=== PATIENT | male | born 1980 ===

== ENCOUNTER 2019-07-30 08:23 | Emergency (ER) | payer SELFPAY ==
[2019-07-30 08:29] VITALS: BMI 29.5
--- NOTE | 2019-07-30 08:29 | ED_ITS ---
HPI - Extremity Injury (Upper) General: Chief Complaint: Extremity Injury, Lower Stated Complaint: Left leg pain Time Seen by Provider: 07/30/19 08:38 History of Present Illness: HPI narrative: 39-year-old male comes in after a fall at home he was walking out to his car he hurt his left knee was unable to walk he denies any other injuries when he fell down.Mild He has no previous injuries to that leg. There is not strike his head there is no loss of consciousness he is awake alert oriented x3 MD complaint: injury to: left (Knee) Review of Systems Const: Denies: fever, chills, body aches, change in appetite, fatigue or malaise ENMT: Denies: throat pain, ear pain, nasal discharge or nasal congestion Card: Denies: chest pain, edema, shortness of breath on exertion or shortness of breath when lying down Resp: Denies: shortness of breath, productive cough or non-productive cough GI: Denies: abdominal pain, nausea, vomiting, vomiting blood, coffee grounds in vomit, diarrhea, constipation, bloating, blood in stool or black tarry stool : Denies: flank pain, painful urination, urinary frequency or urinary urgency Skin/Breast: Denies: rash or itching PFSH ED PFSH: Statuses (acute, chronic, etc) shown below reflect problem list status as previously entered and may not be historically accurate Social History Smoking and tobacco status: never smoked Housing: House 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 Physical Exam Const: COMMON NORMALS: no apparent distress GENERAL APPEARANCE: cooperative and comfortable ORIENTATION/CONSCIOUSNESS: Yes awake, Yes oriented to person, Yes oriented to place and Yes oriented to time HENMT: COMMON NORMALS: normocephalic, head/scalp atraumatic, hearing grossly normal bilaterally, external ears normal, EAC's normal, TM's normal bilaterally, nasal mucous membranes and turbinates normal, moist oral mucous membranes and oropharynx normal HEAD & SCALP: normocephalic and atraumatic NOSE: nasal mucous membranes and turbinates normal EXTERNAL EAR: Yes external ears normal EXTERNAL AUDITORY CANAL: EAC's normal TYMPANIC MEMBRANE: TM's normal bilaterally Eye: COMMON NORMALS: PERRL, EOMs intact bilaterally, conjunctivae normal and no scleral icterus CONJUNCTIVA: Yes conjunctivae normal PUPIL: Yes PERRL Neck/C-Spine: COMMON NORMALS: full ROM, no lymphadenopathy, supple and no JVD Lymph: LYMPHATIC: no lymphadenopathy noted and no lymphedema noted Resp: COMMON NORMALS: normal respiratory effort, no retractions, no use of accessory muscles and clear to auscultation bilaterally AUSCULTATION: clear to auscultation bilaterally Cardio: COMMON NORMALS: no JVD, regular rate, regular rhythm and no murmurs RATE: regular rate RHYTHM: regular rhythm GI: COMMON NORMALS: soft to palpation and no hepatosplenomegaly AUSCULTATION: Yes normoactive bowel sounds PALPATION: Yes soft, No tender, No guarding and Yes no hepatosplenomegaly Extremity: COMMON NORMALS: normal to inspection, normal capillary refill, no clubbing, cyanosis or edema, no calf tenderness and no pedal edema LEFT LOWER EXTREMITY: Yes knee joint (Dorsalis pedis and posterior tibialis pulses are normal sensation is normal to the left foot there is obvious deformity of the right knee with anterior lateral displacement of the tibia on gross appearance. Moderate swelling no laceration no active bleeding) Neuro: SENSORIUM/ORIENTATION: Yes oriented to person, Yes oriented to place and Yes oriented to time Skin: COMMON NORMALS: no rashes or lesions noted GENERAL SKIN EXAM: no rashes or lesions noted Course ED course: Reviewed findings with Dr. Curiel. He came to see the patient in the ER. We did put a posterior splint on will make him nonweightbearing on crutches and given pain medications Ortho will make arrangements for him next week to have outpatient surgery for open reduction internal fixation of the fracture. Vital Signs: Vital signs: Vital Signs Temperature 98.1 F 07/30/19 08:34 Pulse Rate 88 07/30/19 11:47 Respiratory Rate 17 07/30/19 11:47 Blood Pressure 162/103 07/30/19 11:47 Pulse Oximetry 97 07/30/19 11:47 MDM - Extremity Injury (Upper) Lab Data: Labs: Lab Results 07/30/19 07/30/19 07/30/19 Range/Units 08:52 08:52 08:52 WBC 5.4 (4.0-10.0) 10^3/ uL RBC 5.05 (4.1-5.3) 10^6/u L Hgb 14.3 (11.7-16.6) g/dL Hct 42.5 (42.0-52.0) % MCV 84.2 (80-94) fL MCH 28.3 (28.0-34.0) pg MCHC 33.6 (30.0-36.0) g/dL RDW 11.9 L (12.1-15.1) % Plt Count 237 (130-400) 10^3/c mm MPV 10.3 (7.4-10.4) fL Neut % (Auto) 68.9 % Lymph % (Auto) 22.2 % [place] % (Auto) 6.4 % Eos % (Auto) 1.9 % Baso % (Auto) 0.2 % Neut # (Auto) 3.7 (1.8-7.7) 10^3/u L Lymph # (Auto) 1.2 (0.8-4.8) 10^3/u L [place] # (Auto) 0.3 (0.2-0.9) 10^3/u L Eos # (Auto) 0.1 (0.0-0.8) 10^3/u L Baso # (Auto) 0.0 (0.0-0.1) 10^3/u L Nucleated RBC % (a uto) 0 % Nucleated RBCs # 0.0 /100WBC PT 13.30 (10.5-13.3) SECO NDS INR 0.98 (0.8-1.2) APTT 29.3 (23.9-36.7) SECO NDS Sodium 133 L (136-145) mmol/L Potassium 4.5 (3.5-5.1) mmol/L Chloride 97 L (98-107) mmol/L Carbon Dioxide 24 (22-29) mmol/L Anion Gap 16.5 (5-19) BUN 12 (6-20) mg/dL Creatinine 0.6 L (0.7-1.2) mg/dL GFR Calculation 150.8 H (90-130) mL/min Glucose 201 H (74-109) mg/dL Calcium 9.8 (8.6-10.0) mg/Dl Total Bilirubin 0.4 (0.15-1.2) mg/dL AST 25 (0-40) U/L ALT 42 H (0-41) U/L Alkaline Phosphata se 127 (40-130) IU/L Total Protein 7.9 (6.6-8.7) g/dL Albumin 4.8 (3.5-5.2) g/dL Globulin 3.1 (1.3-4.6) g/dL Discharge Plan Discharge Patient Disposition: Home, Self-Care w Plan Readm Clinical Impression: Fracture tibia/fibula Condition: Stable Prescriptions: [place] 5-325 mg tablet 1 tab PO Q6H PRN (Reason: pain) Qty: 20 RF: 0 Zofran 4 mg tablet 4 mg PO Q6H PRN (Reason: nausea and vomiting) Qty: 14 RF: 0 No Action Tylenol 325 mg Tablet 325 mg PO PRN RF: 0 metformin 1,000 mg tablet 1,000 mg PO BID RF: 0 lisinopril 10 mg tablet 10 mg PO DAILY RF: 0 Referrals: Duarte Curiel MD [Physician] - 1-3 days Discharge Date/Time: 07/30/19 11:48 Coding Level of Care Code ED Channel Machine Operator for Chg Fwd Exam Problem Focused
[2019-07-30 08:34] VITALS: BP 160/112; PULSE 117; RESP 18; TEMP 36.7; O2SAT 97
--- NOTE | 2019-07-30 08:35 | XRR_ITS ---
PROCEDURE INFORMATION: Exam: XR Left Knee Exam date and time: 07/30/2019 9:22 AM Age: 39 years old Clinical indication: Injury or trauma; Fall; Initial encounter; Blunt trauma; Lower leg; Left; Additional info: Fall pain, obvious deformity of the lower aspect of the knee TECHNIQUE: Imaging protocol: XR Left knee. Views: 3 views. COMPARISON: CR XR tibia fibula LT 2V [id number] 07/30/2019 8:40 AM FINDINGS: Bones/joints: 3 mm curvilinear metallic density overlying the medial femoral condyle. Acute comminuted fracture of the proximal left fibular diaphysis with mild anterior displacement of major distal fracture fragment. Soft tissues: Mild soft tissue swelling. XR/XR knee LT 3V* [id number] IMPRESSION: 1. 3 mm curvilinear metallic density overlying the medial femoral condyle. 2. Acute comminuted fracture of the proximal left fibular diaphysis with mild anterior displacement of major distal fracture fragment.
--- NOTE | 2019-07-30 08:35 | XRR_ITS ---
PROCEDURE INFORMATION: Exam: XR Left Tibia and Fibula Exam date and time: 07/30/2019 9:22 AM Age: 39 years old Clinical indication: Injury or trauma; Fall; Initial encounter; Fracture, traumatic; Closed fracture; Tibia and ankle; Left; Not specified; Lower end of tibia; Additional info: Fall pain TECHNIQUE: Imaging protocol: XR Left tibia and fibula. Views: 2 views. COMPARISON: No relevant prior studies available. FINDINGS: Bones/joints: Acute comminuted distal left tibial diaphyseal fracture with posterior displacement of major distal fracture fragment. Acute comminuted fracture of the proximal left fibular diaphysis with mild anterior displacement of the major distal fracture fragment. Soft tissues: Mild soft tissue swelling. 3 mm curvilinear metallic density overlying the medial femoral condyle. XR/XR tibia fibula LT 2V [id number] IMPRESSION: 1. Acute comminuted distal left tibial diaphyseal fracture with posterior displacement of major distal fracture fragment. 2. Acute comminuted fracture of the proximal left fibular diaphysis with mild anterior displacement of the major distal fracture fragment.
[2019-07-30] MEDS: ondansetron 2 mg/ML SDV 2 mL 4 MG IVP (08:53)
[2019-07-30] MEDS: morphine 4 mg/mL SDV 1 mL IVP ×2 (08:53→10:43)
[2019-07-30] MEDS: sodium chloride 0.9% 500 ML IV (08:53)
--- NOTE | 2019-07-30 08:56 | XRR_ITS ---
PROCEDURE INFORMATION: Exam: XR Left Ankle Exam date and time: 07/30/2019 9:20 AM Age: 39 years old Clinical indication: Injury or trauma; Fall; Initial encounter; Fracture, traumatic; Nondisplaced; Ankle; Left; Not specified TECHNIQUE: Imaging protocol: XR Left ankle. Views: 3 or more views. COMPARISON: No relevant prior studies available. FINDINGS: Bones/joints: Acute comminuted fracture of the distal left tibial diaphysis with mild lateral and posterior displacement of major distal fracture fragment. Soft tissues: Mild soft tissue swelling. XR/XR ankle LT min 3V* [id number] IMPRESSION: Acute comminuted fracture of the distal left tibial diaphysis with mild lateral and posterior displacement of major distal fracture fragment.
[2019-07-30 09:20] LABS: INR 0.98 (0.8-1.2)
[2019-07-30 09:21] LABS: Partial Thromboplastin Time 29.3 SECONDS (23.9-36.7)
[2019-07-30 09:27] LABS: Alanine Aminotransferase 42 U/L (0-41); Albumin Level 4.8 g/dL (3.5-5.2); Alkaline Phosphatase 127 IU/L (40-130); Anion Gap 16.5 (5-19); Aspartate Amino Transferase 25 U/L (0-40); Blood Urea Nitrogen 12 mg/dL (6-20); Calcium 9.8 mg/Dl (8.6-10.0); Carbon Dioxide 24 mmol/L (22-29); Chloride 97 mmol/L (98-107); Globulin 3.1 g/dL (1.3-4.6); Glomerular Filtration Rate 150.8 mL/min (90-130); Glucose 201 mg/dL (74-109); Potassium 4.5 mmol/L (3.5-5.1); Sodium 133 mmol/L (136-145); Total Bilirubin 0.4 mg/dL (0.15-1.2); Total Protein 7.9 g/dL (6.6-8.7)
[2019-07-30 09:42] LABS: Basophils % 0.2 %; Eosinophils # 0.1 10^3/uL (0.0-0.8); Eosinophils % 1.9 %; Hematocrit 42.5 % (42.0-52.0); Hemoglobin 14.3 g/dL (11.7-16.6); Lymphocytes # 1.2 10^3/uL (0.8-4.8); Lymphocytes % 22.2 %; Mean Corpuscular HGB Conc 33.6 g/dL (30.0-36.0); Mean Corpuscular Hemoglobin 28.3 pg (28.0-34.0); Mean Corpuscular Volume 84.2 fL (80-94); Mean Platelet Volume 10.3 fL (7.4-10.4); Monocytes # 0.3 10^3/uL (0.2-0.9); Monocytes % 6.4 %; Neutrophils # 3.7 10^3/uL (1.8-7.7); Neutrophils % 68.9 %; Nucleated Red Blood Cells % 0 %; Platelet Count 237 10^3/cmm (130-400); Red Blood Count 5.05 10^6/uL (4.1-5.3); Red Cell Distribution Width 11.9 % (12.1-15.1); White Blood Count 5.4 10^3/uL (4.0-10.0)
[2019-07-30 11:47] VITALS: BP 162/103; PULSE 88; RESP 17; O2SAT 97
== END 2019-07-30 11:48 | disposition home or self-care, planned readmission (81) ==
PROVIDERS: Emergency Provider Family Medicine
DX: S82.452A Displaced comminuted fracture of shaft of left fibula, initial encounter for closed fracture (principal); S82.252A Displaced comminuted fracture of shaft of left tibia, initial encounter for closed fracture; Z79.84 Long term (current) use of oral hypoglycemic drugs; W19.XXXA Unspecified fall, initial encounter; Y92.009 Unspecified place in unspecified non-institutional (private) residence as the place of occurrence of the external cause
CPT/HCPCS: 73562; 73590; 73610; 80053; 85025; 85610; 85730; 96360; 96374; 99281; E0114; J2270; J2405; J7040

== ENCOUNTER 2019-08-03 10:12 | Day surgery (SDC) | payer SELFPAY ==
[2019-08-01 08:37] VITALS: BMI 29.5
[2019-08-03] VITALS (14 sets, daily range): BP systolic 138–175; BP diastolic 89–103; PULSE 99–110; RESP 16–22; TEMP 36.4–37.4; O2SAT 92–99
--- NOTE | 2019-08-03 | XR_ITS ---
WS: [id number] C-ARM RADIOGRAPHS LEFT TIBIA-FIBULA; 8 IMAGES HISTORY: ORIF left tibia COMPARISON: 07/30/2019 Intraoperative imaging during intramedullary tremayne placement throughout the tibia. Tremayne stabilizes a com plex fracture in the distal tibia. Fracture is in good alignment. Proximal fibular fracture is not fi xated. XR/XR tibia fibula LT 2V [id number] IMPRESSION: Intraoperative imaging during intramedullary tremayne placement LEFT tibial with com plex fracture in good alignment.
--- NOTE | 2019-08-03 | SCC_ITS ---
Procedure Done: Intramedullary nail left tibial shaft 142.9 seconds of fluoroscopic guidance, for a cumulative dose of 7.70 mGy, was provided to Dr. Curiel by the radiology department. C-arm images of the LEFT lower leg were saved for the patient's permanent record. [facility]
[2019-08-03] MEDS: sodium chloride 0.9% 1,000 ML 30 ML IV (11:00)
--- NOTE | 2019-08-03 11:12 | P.ANES_ITS ---
Pre-Anesthetic Assessment Pre-Anesthetic Assessment: Height/Weight: Height 1.75 m Weight 90.718 kg Temp Pulse Resp BP Pulse Ox 99.4 F 104 H 20 H 157/99 96 08/03/19 10:42 08/03/19 10:42 08/03/19 10:42 08/03/19 10:42 08/03/19 10:42 Preop Diagnosis: Left tibia and fibula fracture Proposed Procedure: Operation Date: 08/03/19 11:55 Proposed Procedures p ORIF Tibia/Fibula 70644 S82.209A(Left) - Duarte Curiel MD Familial anesthetic complications: no trouble Was Beta Demi taken within 2 4 hours: N/A Last intake: Intake Last Liquid Date 08/03/19 Last Liquid Time 21:00 Last Solid Date 08/02/19 Last Solid Time 21:00 Social: Social History: No alcohol and No tobacco Exam: Pre-Anes Outpt Exam: alert, oriented x 3, clear to auscultation bilaterally and regular rate & rhythm Airway: Cervical ROM: WNL MP: 4 Dentition: Chipped Additional comments: missing Pulmonary: Pulmonary: None reported CV/HEM: CV/HEM: HTN : : None reported Hepatic: Hepatic: None reported GI: GI: None reported Metabolic: Metabolic: DM Musc/skel: Comments: tib;/fib fracture Neuropsych: Neuropsych: None reported Anesthetic Plan: ASA status: II Anesthesia: General and Regional (specify below) Other: possible popliteal Risk of > 500 ml blood loss (7ml/kg in children): Yes, adequate IV access and fluids planned Meds/Allergies Current Medications: Current Medications Generic Name Dose Route Start Last Admin Trade Name Viktorq PRN Reason Stop Dose Admin Sodium Chloride 1,000 mls @ 30 ml s/hr 08/03/19 09:00 08/03/19 11:00 Sodium Chloride 0.9% IV 08/04/19 08:59 30 mls/hr .Q24H VERO Administration PFSH Anesthesia PFSH: Social History Smoking and tobacco status: never smoked Housing: House 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
--- NOTE | 2019-08-03 12:21 | PM.HPUD ---
H&P update H&P Update: DATE OF SURGERY/PROCEDURE: 08/03/19 DATE H&P PERFORMED: 07/30/19 H&P UPDATE INFORMATION: H&P completed within last 30 days and No changes to prior documentation PREOP DIAGNOSIS: Left tib-fib fracture PRIMARY INDICATION FOR PROCEDURE: Unstable left tibial fracture PLANNED PROCEDURE: Operation Date: 08/03/19 11:55 Proposed Procedures p ORIF Tibia/Fibula 26982 S82.209A(Left) - Duarte Curiel MD Full H&P Medications/Allergies: Current Medications: Current Medications Generic Name Dose Route Start Last Admin Trade Name Freq PRN Reason Stop Dose Admin Sodium Chloride 1,000 mls @ 30 ml s/hr 08/03/19 09:00 08/03/19 11:00 Sodium Chloride 0.9% IV 08/04/19 08:59 30 mls/hr .Q24H VERO Administration Perinent History: Social History: Social History Smoking and tobacco status: never smoked Housing: House 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
--- NOTE | 2019-08-03 14:08 | P.OP_ITS ---
Operative Report Date of procedure: 08/03/19 Pre-op Diagnosis: Left tib-fib fracture Post-op diagnosis: same Post-op Findings: Same Procedure Done: Intramedullary nail left tibial shaft Implants: Chantal T2 360 x 11 mm tibial nail. Three 5.0 mm distal locking bolts and one proximal locking bolt Specimens removed/disposition: None Surgeon: Duarte Curiel Anesthesia: General Estimated blood loss (mL): 100 Tourniquet time (min): 49 Complications: None Findings: The patient had a comminuted left tib-fib fracture. The distal tibia fracture was located in the distal tibial diaphysis with nondisplaced extension's extending into the metaphysis. Spiral more proximal fibular fracture was present. The patient had large blisters over his medial tibia over area of approximately 6 x 8 cm Condition: stable Disposition: PACU Procedure: The patient was taken to the operating room and given 2 g of Ancef. He was prepped and draped in the supine position with a tourniquet on the left lower extremity. The tourniquet was inflated to 325 mmHg. A 4 cm long incision was made beginning over the medial patella extending toward the medial tibial tubercle. The knee was entered through the medial patellar retinaculum. A sharp awl was used to enter the canal. A ball-tipped guidewire was passed down the tibia across the fracture. The measuring guide was used determined appropriate tibial nail length. Sequential reaming was accomplished up to 12.5 mm. The above [place] tibial nail was passed without difficulty. The static locking guides were used to passed a single medial to lateral locking screw proximally. Fluoroscopy was used the past 2 medial to lateral and 1 anterior to posterior distal locking screw percutaneously. Knee incision was irrigated with saline. The extensor retinaculum was closed with 0 Vicryl. The subcutaneous tissues were closed with 2-0 Vicryl. The skin was closed with skin wiley as were the portals. Wounds and the area of blistering were covered present with Xeroflo gauze 4 x 4's and a compressive Sebastien wrap. The patient was placed in a postoperative boot. He was extubated and taken to recovery room in stable condition.
[2019-08-03] MEDS: HYDROmorphone 1 mg/mL INJ 1 mL 0.5 MG IVP ×2 (14:26→14:36)
--- NOTE | 2019-08-03 15:12 | ANES.PROC ---
Anesthesia Procedures Procedure/Date: 08/03/19 Nerve Block ^: Nerve Block 1: Main Anesthesia: general anesthesia Time Out Performed: Yes Consent: requested by attending/covering physician, from patient, risks and benefits reviewed and patient agrees to proceed Nerve block location: popliteal (L) Anesthesia monitors applied: pulse oximetry, EKG, BP cuff and oxygen Nerve block position: supine Anesthetic Used: with decadron (2 mg) Amount of anesthesia used (mL): 20 Ultrasound used to: recognize landmarks Interscalene/Femoral BLK: 4 stimuplex 21 g needle used for position and inplane approach, visualize local anesthetic spread and no vascular puncture identified Injection: neg aspiration of heme Patient Tolerated Procedure: no complications Complications: none Nerve Block 2: Main Anesthesia: general anesthesia Time Out Performed: Yes Consent: requested by attending/covering physician, from patient, risks and benefits reviewed and patient agrees to proceed Nerve block location: adductor canal (L (done for medial inscision over leg and knee incision)) Nerve block position: semi sitting Anesthetic Used: ropivicaine 0.5% and with decadron (2 mg) Amount of anesthesia used (mL): 20 Ultrasound used to: recognize landmarks Nerve Stimulator Used?: No Interscalene/Femoral BLK: 4 stimuplex 21 g needle used for position and inplane approach, visualize local anesthetic spread and no vascular puncture identified Injection: neg aspiration of heme Patient Tolerated Procedure: well and no complications Complications: none
--- NOTE | 2019-08-03 15:23 | SUR.PHASEI ---
1421 PT TO PACU AWAKE ALERT CRYING OUT WITH PAIN ORDERS RECIEVED TO GIVE DILAUDID NOW FOR PAIN 1456 TIME OUT FOR POPLITEAL AND ADDUCTOR CANNAL BLOCK TO LT LOWER LEG, DONE 1510 BLOCKS COMPLETE, PT ALERT VSS. PT TO OPS AWAKE ALERT TALKATIE PT STATES PAIN IS NOW A 5
[2019-08-03] MEDS: oxyCODONE 5 mg IR Tab/Cap PO (16:30)
== END 2019-08-03 17:00 | disposition home or self-care (01) ==
PROVIDERS: Visit Provider Orthopaedic Surgery
PROC: (CPT 27759; principal; 2019-08-03 11:35)
DX: S82.202A Unspecified fracture of shaft of left tibia, initial encounter for closed fracture (principal); S82.402A Unspecified fracture of shaft of left fibula, initial encounter for closed fracture; X58.XXXA Exposure to other specified factors, initial encounter; I10 Essential (primary) hypertension; E11.9 Type 2 diabetes mellitus without complications
CPT/HCPCS: 27759; 12345; 73590; 76000; 96365; C1713; J0131; J0330; J0690; J1100; J1170; J2001; J2405; J2704; J2795; J3010; J3490; J7030

== ENCOUNTER → 2019-09-15 08:13 | Outpatient (BNVA) | payer SELFPAY | PROVIDERS: Visit Provider Orthopaedic Surgery | DX: Z98.890 Other specified postprocedural states (principal); S82.302A Unspecified fracture of lower end of left tibia, initial encounter for closed fracture; X58.XXXA Exposure to other specified factors, initial encounter | CPT/HCPCS: 73590 ==

== ENCOUNTER → 2019-10-19 13:56 | Outpatient (BNVA) | payer SELFPAY | PROVIDERS: Visit Provider Orthopaedic Surgery | DX: Z98.890 Other specified postprocedural states (principal); S82.202A Unspecified fracture of shaft of left tibia, initial encounter for closed fracture; S82.402A Unspecified fracture of shaft of left fibula, initial encounter for closed fracture; X58.XXXA Exposure to other specified factors, initial encounter | CPT/HCPCS: 73590 ==